=== PATIENT | male | born 1935 | race Caucasian/White ===

== ENCOUNTER 2017-03-24 19:41 | Inpatient (IN) | payer MEDICARE, MEDICAID ==
[~2017-03-24] VITALS: Ht 162.6 cm; Wt 58.5 kg
[2017-03-24 19:41] VITALS: BP_SYST 120
[2017-03-24] MEDS ORDERED: NS 500 ML IV ONE (20:15)
[2017-03-24] MEDS ORDERED: NACL 0.9% 1,000 ML IV ONE (20:15)
[2017-03-24] MEDS ORDERED: LIP80 PO (20:51)
[2017-03-24] MEDS ORDERED: CARV3.1246 PO (20:51)
[2017-03-24] MEDS ORDERED: SACU1TAB7 PO (20:51)
[2017-03-24] MEDS ORDERED: ASPI-1063 PO (20:51)
[2017-03-24] MEDS ORDERED: FURO-149 PO (20:51)
[2017-03-24] MEDS ORDERED: GLU500 PO (20:51)
[2017-03-24] MEDS ORDERED: SPIR25TA PO (20:51)
[2017-03-24] MEDS ORDERED: CLOP75TA2 PO (20:51)
[2017-03-24 20:53] LABS: BASOPHILS % (AUTO) 0.7 % (0.0-2.0); EOSINOPHILS # (AUTO) 0.1 K/uL (0.0-0.4); EOSINOPHILS % (AUTO) 1.6 % (0.0-4.0); HEMATOCRIT 43.6 % (36-54); LYMPHOCYTES # (AUTO) 1.1 K/uL (1.0-5.5); LYMPHOCYTES % (AUTO) 16.4 % (20.5-51.5); MEAN CORPUSCULAR HEMOGLOBIN 27 pg (27-31); MEAN CORPUSCULAR HGB CONC 32 % (32-36); MEAN CORPUSCULAR VOLUME 85 fL (79.0-98.0); MONOCYTES # (AUTO) 0.8 K/uL (0.0-1.0); MONOCYTES % (AUTO) 11.2 % (1.7-9.3); NEUTROPHILS # (AUTO) 4.7 K/uL (1.8-7.7); NEUTROPHILS % (AUTO) 70.1 % (40.0-70.0); PLATELET COUNT (AUTO) 140 K/uL (130-430); RED BLOOD CELL COUNT(AUTO) 5.12 MIL/uL (4.2-6.2); RED CELL DISTRIBUTION WIDTH 16.9 % (9.0-15.0); WHITE BLOOD COUNT (AUTO) 6.7 K/uL (4.8-10.8)
[2017-03-24 21:09] LABS: ANION GAP 12 (5-15); CALCIUM 9.4 mg/dL (8.4-11.0); CHLORIDE 103 mmol/L (98-107); CREATININE 1.42 mg/dL (0.55-1.30); GLUCOSE 213 mg/dL (70-99); POTASSIUM 5.2 mmol/L (3.5-5.1); SODIUM SERUM 133 mmol/L (136-145); UREA NITROGEN, BLOOD 51 mg/dL (8-21)
[2017-03-24 21:11] LABS: INR 1.4 (0.80-1.20); PROTHROMBIN TIME 14.4 SECS (9.5-12.5)
[2017-03-24 21:14] LABS: ALANINE AMINOTRANSFERASE 47 U/L (12-78); ALBUMIN 3.2 g/dL (3.4-4.8); ASPARTATE AMINOTRANSFERASE 48 U/L (10-37); TOTAL BILIRUBIN 1.3 mg/dL (0.0-1.0)
[2017-03-24] MEDS ORDERED: MORPHINE 2 MG/ML INJ. SYRINGE IVP ONE (21:30)
[2017-03-24] MEDS ORDERED: LORazepam 2 MG/ML VIAL (FOR ER USE) IVP ONE (21:30)
[2017-03-24] MEDS ORDERED: ASPIRIN 81 MG TAB.CHEW PO ONE ×2 (21:45)
[2017-03-24] MEDS ORDERED: CLOPIDOGREL BISULFATE 75 MG TABLET PO ONE (21:45)
[2017-03-24 21:50] LABS: BILIRUBIN,URINE NEGATIVE (NEGATIVE); BLOOD, URINE NEGATIVE (NEGATIVE); CLARITY/URINE CLEAR (CLEAR); COLOR,URINE YELLOW (YELLOW); GLUCOSE,URINE NEGATIVE (NEGATIVE); KETONES,URINE TRACE (NEGATIVE); LEUKOCYTE ESTERASE ,URINE NEGATIVE (NEGATIVE); NITRITE, URINE NEGATIVE (NEGATIVE); PH,URINE 5.5 (5.0-8.0); PROTEIN URINE TRACE (NEGATIVE); UROBILINOGEN,URINE 0.2 (0.2-1.0)
[2017-03-24 21:58] LABS: BACTERIA,URINE FEW /HPF (None Seen); FINE GRANULAR CASTS,URINE 0-2 /LPF (None Seen); RBC,URINE 0-3 /HPF (0-3); WBC,URINE 0-3 /HPF (0-3)
[2017-03-24] MEDS ORDERED: ONDANSETRON HCL 4 MG/2 ML VIAL IVP ONE (22:00)
[2017-03-24] MEDS ORDERED: MORPHINE 2 MG/ML INJ. SYRINGE IVP PRN (22:30)
[2017-03-24] MEDS ORDERED: ONDANSETRON HCL 4 MG/2 ML VIAL IVP PRN (22:30)
[2017-03-24] MEDS ORDERED: metroNIDAZOLE 500 mg/NS 200 ML IV ONE (23:02)
[2017-03-24 23:21] VITALS: BP_SYST 111
[2017-03-24 23:47] VITALS: BP_SYST 111
[2017-03-24 23:49] VITALS: BP_SYST 111
[2017-03-25] VITALS: BP_SYST 113
[2017-03-25] MEDS ORDERED: LEVOFLOXACIN 500 MG/D5W 100 ML IV ONE ×3 (02:00→02:30)
[2017-03-25] MEDS ORDERED: LEVOFLOXACIN 250 MG/D5W 50 ML IV ONE (02:00)
[2017-03-25 04:00] VITALS: BP_SYST 108
[2017-03-25] MEDS: metroNIDAZOLE 500 mg/NS 100 ML IV SCH ×3 (05:13→21:30)
[2017-03-25] MEDS ORDERED: MORPHINE 2 MG/ML INJ. SYRINGE IVP PRN (05:30)
[2017-03-25] MEDS ORDERED: MORPHINE 4 MG/ML INJ. SYRINGE IVP PRN (05:30)
[2017-03-25] MEDS ORDERED: ONDANSETRON HCL 4 MG/2 ML VIAL IVP PRN (05:30)
[2017-03-25] MEDS ORDERED: ACETAMINOPHEN 325 MG TABLET PO PRN (05:30)
[2017-03-25] MEDS ORDERED: DEXTROSE 50% JECT 50 ML DISP.SYRIN IVP PRN (05:30)
[2017-03-25] MEDS: INSULIN REGULAR, HUMAN 100 UNITS/ML, 10 ML VIAL (novoLIN R) SUBCUT PRN (06:32)
[2017-03-25 08:00] VITALS: BP_SYST 99
[2017-03-25] MEDS: CARVEDILOL 3.125 MG TABLET (COREG) PO SCH ×2 (09:00→21:32)
[2017-03-25 09:10] LABS: BASOPHILS % (AUTO) 0.4 % (0.0-2.0); EOSINOPHILS # (AUTO) 0.2 K/uL (0.0-0.4); EOSINOPHILS % (AUTO) 2.7 % (0.0-4.0); HEMOGLOBIN 13.9 g/dL (14.0-18.0); LYMPHOCYTES # (AUTO) 1.5 K/uL (1.0-5.5); LYMPHOCYTES % (AUTO) 25.2 % (20.5-51.5); MEAN CORPUSCULAR HEMOGLOBIN 27 pg (27-31); MEAN CORPUSCULAR HGB CONC 32 % (32-36); MEAN CORPUSCULAR VOLUME 86 fL (79.0-98.0); MONOCYTES # (AUTO) 0.8 K/uL (0.0-1.0); MONOCYTES % (AUTO) 12.5 % (1.7-9.3); NEUTROPHILS # (AUTO) 3.6 K/uL (1.8-7.7); NEUTROPHILS % (AUTO) 59.2 % (40.0-70.0); PLATELET COUNT (AUTO) 152 K/uL (130-430); RED BLOOD CELL COUNT(AUTO) 5.13 MIL/uL (4.2-6.2); RED CELL DISTRIBUTION WIDTH 17.5 % (9.0-15.0); WHITE BLOOD COUNT (AUTO) 6.1 K/uL (4.8-10.8)
[2017-03-25] MEDS: SPIRONOLACTONE 25 MG TABLET (ALDACTONE) PO SCH (09:23)
[2017-03-25] MEDS: ASPIRIN 81 MG TABLET(ECOTRIN) PO SCH (09:23)
[2017-03-25] MEDS: CLOPIDOGREL BISULFATE 75 MG TABLET PO SCH (09:23)
[2017-03-25 09:25] LABS: ALANINE AMINOTRANSFERASE 42 U/L (12-78); ALBUMIN 2.8 g/dL (3.4-4.8); ANION GAP 9 (5-15); ASPARTATE AMINOTRANSFERASE 44 U/L (10-37); CHLORIDE 104 mmol/L (98-107); CREATININE 1.23 mg/dL (0.55-1.30); GLUCOSE 94 mg/dL (70-99); POTASSIUM 4.6 mmol/L (3.5-5.1); SODIUM SERUM 135 mmol/L (136-145); TOTAL BILIRUBIN 1.1 mg/dL (0.0-1.0); UREA NITROGEN, BLOOD 41 mg/dL (8-21)
[2017-03-25] MEDS ORDERED: FUROSEMIDE 40 MG TABLET PO ONE (10:30)
[2017-03-25 12:31] VITALS: BP_SYST 101
[2017-03-25 17:03] VITALS: BP_SYST 106
[2017-03-25 20:00] VITALS: BP_SYST 107
[2017-03-25] MEDS: LEVOFLOXACIN 250 MG/D5W 50 ML IV SCH (21:30)
[2017-03-25] MEDS: ATORVASTATIN 20 MG TABLET PO SCH (21:31)
[2017-03-25] MEDS: FUROSEMIDE 40 MG TABLET PO SCH (21:33)
[2017-03-25] MEDS: VALSARTAN 80 MG TABLET (DIOVAN) PO SCH (21:33)
[2017-03-26 00:04] VITALS: BP_SYST 111
[2017-03-26] MEDS: INSULIN REGULAR, HUMAN 100 UNITS/ML, 10 ML VIAL (novoLIN R) SUBCUT PRN ×2 (01:17→06:28)
[2017-03-26 03:17] VITALS: BP_SYST 110
[2017-03-26] MEDS: metroNIDAZOLE 500 mg/NS 100 ML IV SCH ×3 (06:04→22:45)
[2017-03-26 07:09] LABS: ANION GAP 10 (5-15); CALCIUM 8.3 mg/dL (8.4-11.0); CHLORIDE 104 mmol/L (98-107); CREATININE 0.99 mg/dL (0.55-1.30); GLUCOSE 89 mg/dL (70-99); POTASSIUM 3.6 mmol/L (3.5-5.1); SODIUM SERUM 138 mmol/L (136-145); UREA NITROGEN, BLOOD 26 mg/dL (8-21)
[2017-03-26 07:10] LABS: INR 1.4 (0.80-1.20); PROTHROMBIN TIME 14.1 SECS (9.5-12.5)
[2017-03-26 07:14] LABS: BASOPHILS % (AUTO) 0.3 % (0.0-2.0); EOSINOPHILS # (AUTO) 0.3 K/uL (0.0-0.4); EOSINOPHILS % (AUTO) 5.3 % (0.0-4.0); HEMATOCRIT 41.4 % (36-54); HEMOGLOBIN 13.6 g/dL (14.0-18.0); LYMPHOCYTES # (AUTO) 0.9 K/uL (1.0-5.5); LYMPHOCYTES % (AUTO) 15.4 % (20.5-51.5); MEAN CORPUSCULAR HEMOGLOBIN 28 pg (27-31); MEAN CORPUSCULAR HGB CONC 33 % (32-36); MEAN CORPUSCULAR VOLUME 85 fL (79.0-98.0); MONOCYTES # (AUTO) 0.6 K/uL (0.0-1.0); NEUTROPHILS # (AUTO) 4.2 K/uL (1.8-7.7); PLATELET COUNT (AUTO) 123 K/uL (130-430); RED BLOOD CELL COUNT(AUTO) 4.85 MIL/uL (4.2-6.2); RED CELL DISTRIBUTION WIDTH 17.4 % (9.0-15.0)
[2017-03-26 07:32] LABS: AMYLASE 31 U/L (0-100); LIPASE 138 U/L (73-393)
[2017-03-26 08:20] LABS: CHOLESTEROL 102 mg/dL (<200); HDL CHOLESTEROL 31 mg/dL (>45); LDL CHOLESTEROL 78 mg/dL (<100); TRIGLYCERIDES 81 mg/dL (30-150)
[2017-03-26 08:27] VITALS: BP_SYST 101
[2017-03-26] MEDS: FUROSEMIDE 40 MG TABLET PO SCH ×2 (09:00→21:29)
[2017-03-26] MEDS: CLOPIDOGREL BISULFATE 75 MG TABLET PO SCH (09:00)
[2017-03-26] MEDS: VALSARTAN 80 MG TABLET (DIOVAN) PO SCH ×2 (09:00→21:29)
[2017-03-26] MEDS: CARVEDILOL 3.125 MG TABLET (COREG) PO SCH ×2 (09:00→21:29)
[2017-03-26] MEDS: ASPIRIN 81 MG TABLET(ECOTRIN) PO SCH (09:00)
[2017-03-26] MEDS: SPIRONOLACTONE 25 MG TABLET (ALDACTONE) PO SCH (09:00)
[2017-03-26 11:14] VITALS: BP_SYST 111
[2017-03-26] MEDS: MEPERIDINE HCL/PF 100 MG/ML AMP ONE ×3 (15:05→16:58)
[2017-03-26] MEDS: MIDAZOLAM HCL 5 MG/5 ML VIAL ONE ×3 (15:05→16:58)
[2017-03-26 16:20] VITALS: BP_SYST 102
[2017-03-26 20:05] VITALS: BP_SYST 94
[2017-03-26] MEDS: ATORVASTATIN 20 MG TABLET PO SCH (21:27)
[2017-03-26] MEDS: LEVOFLOXACIN 250 MG/D5W 50 ML IV SCH (21:29)
[2017-03-27] VITALS (8 sets, daily range): BP systolic 95–103
[2017-03-27] MEDS: INSULIN REGULAR, HUMAN 100 UNITS/ML, 10 ML VIAL (novoLIN R) SUBCUT PRN (00:19)
[2017-03-27] MEDS: metroNIDAZOLE 500 mg/NS 100 ML IV SCH ×3 (06:13→22:59)
[2017-03-27 08:06] LABS: AFP, TUMOR MARKER 6.3 ng/mL (0.0-8.3); HEPATITIS A AB, IgM Negative (Negative); HEPATITIS B CORE AB, IgM Negative (Negative); HEPATITIS B SURFACE AG Negative (Negative)
[2017-03-27] MEDS: CLOPIDOGREL BISULFATE 75 MG TABLET PO SCH (09:24)
[2017-03-27] MEDS: SPIRONOLACTONE 25 MG TABLET (ALDACTONE) PO SCH (09:24)
[2017-03-27] MEDS: ASPIRIN 81 MG TABLET(ECOTRIN) PO SCH (09:24)
[2017-03-27] MEDS: VALSARTAN 80 MG TABLET (DIOVAN) PO SCH ×2 (09:25→20:59)
[2017-03-27] MEDS: CARVEDILOL 3.125 MG TABLET (COREG) PO SCH ×2 (09:25→21:01)
[2017-03-27] MEDS: FUROSEMIDE 40 MG TABLET PO SCH ×2 (09:25→21:00)
[2017-03-27] MEDS: LEVOFLOXACIN 250 MG/D5W 50 ML IV SCH (20:58)
[2017-03-27] MEDS: ATORVASTATIN 20 MG TABLET PO SCH (21:01)
[2017-03-28 03:36] VITALS: BP_SYST 98
[2017-03-28] MEDS: metroNIDAZOLE 500 mg/NS 100 ML IV SCH ×2 (06:03→14:44)
[2017-03-28 07:06] LABS: BASOPHILS % (AUTO) 0.1 % (0.0-2.0); EOSINOPHILS # (AUTO) 0.6 K/uL (0.0-0.4); EOSINOPHILS % (AUTO) 9.5 % (0.0-4.0); HEMATOCRIT 41.3 % (36-54); HEMOGLOBIN 13.6 g/dL (14.0-18.0); LYMPHOCYTES # (AUTO) 1.5 K/uL (1.0-5.5); LYMPHOCYTES % (AUTO) 23.3 % (20.5-51.5); MEAN CORPUSCULAR HEMOGLOBIN 28 pg (27-31); MEAN CORPUSCULAR HGB CONC 33 % (32-36); MEAN CORPUSCULAR VOLUME 85 fL (79.0-98.0); MONOCYTES # (AUTO) 0.8 K/uL (0.0-1.0); MONOCYTES % (AUTO) 11.9 % (1.7-9.3); NEUTROPHILS # (AUTO) 3.7 K/uL (1.8-7.7); NEUTROPHILS % (AUTO) 55.2 % (40.0-70.0); PLATELET COUNT (AUTO) 105 K/uL (130-430); RED BLOOD CELL COUNT(AUTO) 4.85 MIL/uL (4.2-6.2); RED CELL DISTRIBUTION WIDTH 17.1 % (9.0-15.0); WHITE BLOOD COUNT (AUTO) 6.6 K/uL (4.8-10.8)
[2017-03-28 07:36] LABS: ALANINE AMINOTRANSFERASE 25 U/L (12-78); ALBUMIN 2.5 g/dL (3.4-4.8); ANION GAP 6 (5-15); ASPARTATE AMINOTRANSFERASE 28 U/L (10-37); CALCIUM 8.6 mg/dL (8.4-11.0); CHLORIDE 103 mmol/L (98-107); CREATININE 0.95 mg/dL (0.55-1.30); GLUCOSE 102 mg/dL (70-99); LIPASE 195 U/L (73-393); POTASSIUM 3.7 mmol/L (3.5-5.1); SODIUM SERUM 134 mmol/L (136-145); TOTAL BILIRUBIN 0.9 mg/dL (0.0-1.0); UREA NITROGEN, BLOOD 18 mg/dL (8-21)
[2017-03-28 08:31] VITALS: BP_SYST 110
[2017-03-28] MEDS: CARVEDILOL 3.125 MG TABLET (COREG) PO SCH (09:44)
[2017-03-28] MEDS: CLOPIDOGREL BISULFATE 75 MG TABLET PO SCH (09:45)
[2017-03-28] MEDS: ASPIRIN 81 MG TABLET(ECOTRIN) PO SCH (09:45)
[2017-03-28] MEDS: SPIRONOLACTONE 25 MG TABLET (ALDACTONE) PO SCH (09:45)
[2017-03-28] MEDS: VALSARTAN 80 MG TABLET (DIOVAN) PO SCH (09:46)
[2017-03-28] MEDS: FUROSEMIDE 40 MG TABLET PO SCH (09:46)
[2017-03-28 12:28] VITALS: BP_SYST 101
[2017-03-28 16:16] VITALS: BP_SYST 101
[2017-03-28 16:56] VITALS: BP_SYST 109
== END 2017-03-28 17:10 | disposition home or self-care (01) | DRG 374 ==
LOC: SED 19:41 → STU 22:16 → SMU 03-27 11:12
PROVIDERS: ADMIT Internal Medicine Hospice and Palliative Medicine; ATTEND Internal Medicine Hospice and Palliative Medicine
PROC: 0DB78ZX Excision of Stomach, Pylorus, Via Natural or Artificial Opening Endoscopic, Diagnostic (ICD-10-PCS; 2017-03-26)
PROC: 0DB98ZX Excision of Duodenum, Via Natural or Artificial Opening Endoscopic, Diagnostic (ICD-10-PCS; principal; 2017-03-26 13:00)
DX: C17.0 Malignant neoplasm of duodenum (principal); I50.43 Acute on chronic combined systolic (congestive) and diastolic (congestive) heart failure; N18.4 Chronic kidney disease, stage 4 (severe); E46 Unspecified protein-calorie malnutrition; E11.22 Type 2 diabetes mellitus with diabetic chronic kidney disease; I42.0 Dilated cardiomyopathy; J44.9 Chronic obstructive pulmonary disease, unspecified; I13.0 Hypertensive heart and chronic kidney disease with heart failure and stage 1 through stage 4 chronic kidney disease, or unspecified chronic kidney disease; D64.9 Anemia, unspecified; I25.2 Old myocardial infarction; K25.7 Chronic gastric ulcer without hemorrhage or perforation; K29.80 Duodenitis without bleeding; Z66 Do not resuscitate; K31.9 Disease of stomach and duodenum, unspecified; Z79.899 Other long term (current) drug therapy; Z79.82 Long term (current) use of aspirin; Z79.02 Long term (current) use of antithrombotics/antiplatelets; Z95.1 Presence of aortocoronary bypass graft; Z95.810 Presence of automatic (implantable) cardiac defibrillator; Z95.5 Presence of coronary angioplasty implant and graft; Z86.73 Personal history of transient ischemic attack (TIA), and cerebral infarction without residual deficits; Z68.22 Body mass index [BMI] 22.0-22.9, adult
CPT/HCPCS: 36415; 43239; 71010; 76700-TC; 80048; 80053; 80061; 80074; 81000-TC; 82105; 82150-TC; 82962; 83605; 83690-TC; 83880; 84484; 85025; 85610-TC; 85730-TC; 87040-TC; 87081; 87086; 88305; 88312; 88313; 93005; 93306; 96374; 96375; 97110-GP; 97116-GP; 97530-GP; 99285; J1815; J1956; J2060; J2175; J2250; J2270; J2405; J3490; J7030; J7040; J7050